=== PATIENT | female | born 1985 | race Caucasian/White ===

== ENCOUNTER 2021-11-25 20:47 | Emergency (ER) | payer OTHER, SELFPAY ==
[2021-11-25] MEDS ORDERED: Ibuprofen 600 MG TAB ONE (21:07)
== END 2021-11-25 21:47 | disposition home or self-care (01) ==
LOC: MADERS 20:47
DX: S93.401A Sprain of unspecified ligament of right ankle, initial encounter (principal); D16.21 Benign neoplasm of long bones of right lower limb; F17.200 Nicotine dependence, unspecified, uncomplicated; W18.30XA Fall on same level, unspecified, initial encounter